=== PATIENT | female | born 1985 | race Caucasian/White ===

== ENCOUNTER 2024-10-09 14:59 | Emergency (ER) | payer MEDICAID | END 2024-10-09 16:33 | disposition home or self-care (01) | LOC: MADERS 14:59 | DX: S82.832A Other fracture of upper and lower end of left fibula, initial encounter for closed fracture (principal); F17.200 Nicotine dependence, unspecified, uncomplicated; X50.9XXA Other and unspecified overexertion or strenuous movements or postures, initial encounter | CPT/HCPCS: 99283 ==